=== PATIENT | male | born 2000 ===

== ENCOUNTER 2020-02-05 08:24 | Outpatient (REF) | payer MEDICAID, SELFPAY | END 2020-02-05 08:25 | disposition home or self-care (01) | LOC: HO.LAB 08:24 | PROVIDERS: PCP Pediatrics; Visit Provider Internal Medicine | DX: Z20.828 Contact with and (suspected) exposure to other viral communicable diseases (principal) | CPT/HCPCS: C9803; U0003 ==

== ENCOUNTER 2020-05-31 14:56 | Emergency (ER) | payer MEDICAID, SELFPAY ==
--- NOTE | 2020-05-31 15:01 | ED.EXTPRO ---
HPI - Extremity Problem General Chief complaint: Extremity Injury, Upper Stated complaint: pulled muscle l arm Time Seen by Provider: 05/31/20 15:01 Source: patient Mode of arrival: ambulatory Limitations: no limitations History of Present Illness HPI Narrative: Otherwise healthy 20-year-old male states he recently started going to the gym 1 week ago or so and over the past couple days he has been doing upper arm shows sizes and felt sore in the triceps area of the left arm after doing workouts and couple days has had soreness in the biceps area and today noted to have slight swelling on the distal aspect. He states he is able to fully move and flex at the arm however when he does any resistance against the bicep more the minimum it hurts. MD Complaint: extremity pain Pain Consistency: intermittent Location: left Quality: aching Radiation: none Relieving factors: cold therapy and immobilization Exacerbating factors: range of motion Associated symptoms: denies other symptoms Related Data Previous Rx's Medication Instructions Recorded ibuprofen 800 mg PO Q8H PRN #30 tab 05/31/20 Allergies Allergy/AdvReac Type Severity Reaction Status Date / Time No Known Allergies Allergy Verified 05/31/20 15:21 [No Known Allergies*] Review of Systems Review of Systems: Constitutional: No Weight loss, No Fever, No Chills, No Night Sweats, No Fatigue, No Malaise ENT/Mouth: No Hearing loss, No Ear Pain, No Nasal Congestion, No Sinus Pain, No Hoarseness, No sore throat, No Rhinorrhea, No Swallowing Difficulty Eyes: No Eye Pain, No Swelling, No Redness, No Foreign Body, No Discharge, No Vision Changes Cardiovascular: No Chest Pain, No SOB, No Dyspnea on Exertion, No Orthopnea, No Edema, No Palpitations Respiratory: No Cough, No Sputum, No Wheezing, No Smoke Exposure, No Dyspnea Gastrointestinal: Negative Genitourinary: Negative Musculoskeletal: No joint pain, No Myalgias, No Joint Swelling, as noted per HPI Skin: No Skin Lesions, No rash Neuro: No Weakness, No Numbness, No Paresthesias, No Loss of Consciousness, No Dizziness, No Headache Psych: No Social Issues Heme/Lymph: No Bruising, No Bleeding,No Lymphadenopathy Endocrine: No Polyuria, No Polydipsia, No Temperature Intolerance Yes all other systems are reviewed and are negative [facility] Past Medical History Medical History (Updated 05/31/20 @ 15:49 by Sergio Rodriguez NP) No known health problems Social History Social History Advance Directives: No Advance Directives Information Provided: Yes Physical Exam Vital Signs: Vital Signs: Last Vital Signs Temp 98.2 F 05/31/20 15:19 Pulse 87 05/31/20 15:19 Resp 18 05/31/20 15:19 BP 132/63 05/31/20 15:19 Pulse Ox 100 05/31/20 15:19 Body Mass Index 40.7 Reviewed Const: General: cooperative and healthy appearing; No acute distress or intoxicated appearing Nutritional Appearance: average body habitus Orientation/consciousness: patient oriented x3 HENMT: Head: Yes normal to inspection Ears: hearing grossly normal bilaterally Eyes: General: appearance normal, both eyes and all related structures Visual Diaz: normal visual diaz by confrontation Neck: Neck: Yes normal visual inspection, No positive Brudzinski's sign, No positive Kernig's sign and No tender Thyroid: Thyroid normal Chest: Chest palpation & inspection: normal inspection of the chest Resp: Effort & Inspection: normal respiratory effort Auscultation: clear to auscultation bilaterally Cardio: Jugular venous distension: no JVD Rhythm: regular rhythm Heart sounds: S1 normal heart sound present and S2 normal heart sound present : General: Yes no CVA tenderness Back/Spine/Pelvis: Back: no CVA tenderness Skin: General skin exam: no rashes or lesions noted Neuro: General: patient oriented x3 Extrem: Other: With pushing against downward force using the triceps he has in the lower biceps region. No over bulging or erythema or ecchymosis. Neurovascular intact. General: Yes normal to inspection Right upper extremity: normal to inspection and full ROM (Able to have full painless range of motion and fully flex ) Left upper extremity: normal to inspection Course Course Course Narrative: Question triceps partial tear versus strain case discussed with Orthopedics recommendation for NSAIDs and cool compresses and follow up in office. Discharge Plan Discharge Clinical Impression: Strain of left triceps muscle Qualifiers: Encounter type: initial encounter Qualified Code(s): S46.312A - Strain of muscle, fascia and tendon of triceps, left arm, initial encounter Patient Disposition: Home, Self-Care Instructions: Muscle Strain (ED) Additional Instructions: You have stranger triceps muscle There is a question whether you have partial tear For this you need to limit her activity Gentle stretching Cold compresses Ibuprofen as prescribed Follow up with Orthopedics in the next 1 weeks Return if any concerns or worsening symptoms Thank you Prescriptions: New ibuprofen 800 mg tablet 800 mg PO Q8H PRN (Reason: pain) Qty: 30 RF: 0 Referrals: Renetta Israel MD [Physician] - 1 week Stand Alone Forms: Work/School Release Interventions: ED Discharge Assessment Last Done: 05/31/20 15:55 Discharge Date/Time: 05/31/20 15:55
[2020-05-31 15:19] VITALS: BP 132/63; PULSE 87; RESP 18; TEMP 36.8; O2SAT 100; BMI 40.7
== END 2020-05-31 15:55 | disposition home or self-care (01) ==
PROVIDERS: Emergency Provider Emergency Medicine; PCP Pediatrics
DX: S46.312A Strain of muscle, fascia and tendon of triceps, left arm, initial encounter (principal); M79.622 Pain in left upper arm; X50.0XXA Overexertion from strenuous movement or load, initial encounter; X50.3XXA Overexertion from repetitive movements, initial encounter; Y93.B9 Activity, other involving muscle strengthening exercises; Y92.9 Unspecified place or not applicable; Y99.9 Unspecified external cause status
CPT/HCPCS: 99283

== ENCOUNTER → 2020-06-11 11:07 | Outpatient (BNVA) | payer MEDICAID, SELFPAY | PROVIDERS: Visit Provider Physician Assistant | DX: S46.312A Strain of muscle, fascia and tendon of triceps, left arm, initial encounter (principal) | CPT/HCPCS: 99202 ==

== ENCOUNTER 2020-12-31 13:56 | Outpatient (REF) | payer MEDICAID, SELFPAY | END 2020-12-31 13:57 | disposition home or self-care (01) | LOC: HO.LAB 13:56 | PROVIDERS: PCP Pediatrics; Visit Provider Internal Medicine | DX: Z20.822 Contact with and (suspected) exposure to COVID-19 (principal) | CPT/HCPCS: C9803; U0003; U0005 ==

== ENCOUNTER 2022-03-17 12:07 | Emergency (ER) | payer MEDICAID, SELFPAY ==
--- NOTE | ~2022-03-17 | US_ITS ---
EXAMINATION: US ABDOMEN LIMITED CLINICAL INFORMATION: Right upper quadrant pain. Assess for biliary disease.. COMPARISON: CT abdomen and pelvis with contrast 11/14/2016 TECHNIQUE: Real-time imaging of the right upper quadrant abdominal viscera. FINDINGS: PANCREAS: Small portions of the pancreatic body visualized appear normal in size and no pancreatic ductal distention or retroperitoneal effusion. Other portions are obscured by bowel gas and not completely imaged. LIVER: Liver is upper limits of normal and smooth in contour. Echogenicity is within limits of normal. No focal hepatic parenchymal lesion. Portal flow towards the liver. No intrahepatic biliary ductal dilatation. GALLBLADDER: There are mobile stones in the dependent gallbladder. No gallbladder wall thickening or pericholecystic fluid. COMMON BILE DUCT: Normal in caliber measuring 0.5 cm in diameter. RIGHT KIDNEY: Normal. No hydronephrosis. No renal calculi or focal parenchymal lesions. The kidney measures 9.8 cm in maximum dimension. FREE FLUID: None. US/US abdomen limited IMPRESSION: -Cholelithiasis. No gallbladder wall thickening or biliary ductal dilatation. -No right hydronephrosis.
[2022-03-17 12:19] VITALS: BP 118/84; PULSE 68; RESP 18; TEMP 36.7; O2SAT 100; BMI 39.1
--- NOTE | 2022-03-17 12:46 | ED_ITS ---
HPI - Abdominal Pain General Chief Complaint: Abdominal Pain <Johnson Dobbs MD - Last Filed: 03/17/22 12:48> Stated Complaint: Upper Stomach Pain <Johnson Dobbs MD - Last Filed: 03/17/22 12:48> Time Seen by Provider: 03/17/22 12:52 <Johnson Dobbs MD - Last Filed: 03/17/22 12:48> Source: patient <MIKAELA Morales - Last Filed: 03/17/22 16:07> Mode of arrival: ambulatory <MIKAELA Morales - Last Filed: 03/17/22 16:07> Limitations: no limitations <MIKAELA Morales Last Filed: 03/17/22 16:07> History of Present Illness HPI narrative: 21-year-old male presents to the ER for evaluation epigastric pain that started at 05:00 today after he woke up. He reports the pain is sharp and burning in nature and radiates around both sides of his rib cage into his back. He has had several episodes of pain like this in the past, been seen in the ER and told he had ?swelling of his small intestine. ? he states intermittent flare-ups every few months for the last few years. He denies any associated nausea, vomiting or diarrhea. He had last normal bowel movement this morning. He denies any fever or chills. He states the pain is primarily in his epigastric area and is constant. The radiation is intermittent and more to the right side than the left side. <MIKAELA Morales - Last Filed: 03/17/22 16:07> MD elicited complaint: abdominal pain <MIKAELA Morales - Last Filed: 03/17/22 16:07> Onset (ago): hour(s) <MIKAELA Morales Last Filed: 03/17/22 16:07> Pain Consistency: constant <MIKAELA Morales Last Filed: 03/17/22 16:07> Location: epigastric <MIKAELA Morales Last Filed: 03/17/22 16:07> Severity: moderate <MIKAELA Morales Last Filed: 03/17/22 16:07> Pain scale (0-10): 7 <MIKAELA Morales - Last Filed: 03/17/22 16:07> Quality: aching and burning <MIKAELA Morales - Last Filed: 03/17/22 16:07> Radiation: L flank, R flank and back <MIKAELA Morales - Last Filed: 03/17/22 16:07> Migration to: no migration <MIKAELA Morales - Last Filed: 03/17/22 16:07> Exacerbating factors: nothing <MIKAELA Morales - Last Filed: 03/17/22 16:07> Relieving factors: nothing <MIKAELA Morales - Last Filed: 03/17/22 16:07> Context: history of similar episodes <MIKAELA Morales - Last Filed: 03/17/22 16:07> Related Data Home Medications: Previous Rx's Medication Instructions Recorded ibuprofen 800 mg tablet 800 mg PO Q8H PRN pain #30 tabs 05/31/20 pantoprazole 40 mg tablet,delayed 40 mg PO DAILY #30 tabs 03/17/22 release (Protonix) <Johnson Dobbs MD - Last Filed: 03/17/22 12:48> Allergies/Adverse Reactions: Allergies Allergy/AdvReac Type Severity Reaction Status Date / Time No Known Allergies Allergy Verified 06/11/20 11:13 [No Known Allergies*] <Johnson Dobbs MD - Last Filed: 03/17/22 12:48> Review of Systems Review of Systems Constitutional: No Fever, No Chills Cardiovascular: No Chest Pain, No SOB Respiratory: No Cough, No Sputum, No Wheezing, No dyspnea Gastrointestinal: No Nausea, No Vomiting, No Diarrhea, + abdominal Pain, No Hematochezia, No Melena Genitourinary: No Dysuria, No Urinary Frequency, No Hematuria Musculoskeletal: No joint pain, No Myalgias Skin: No Skin Lesions, No rash Neuro: No Weakness, No Numbness, No Dizziness, No Headache Psych: No Anxiety/Panic, No Depression Heme/Lymph: No Bruising, No Lymphadenopathy <MIKAELA Morales Last Filed: 03/17/22 16:07> PMFSH Past Medical History Medical History: Medical History No known health problems <Johnson Dobbs MD - Last Filed: 03/17/22 12:48> Family History Family History: Family History (Updated 06/11/20 @ 11:13 by SANDRA Fernandes) Mother No problems noted. Father No problems noted. 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 Oriented X3. No acute distress. Eyes: Pupils equal, round and reactive to light. ENT: Pharynx normal. Neck: Normal inspection. Neck supple. CVS: Normal heart rate and rhythm. Pulses normal. Respiratory: No respiratory distress. Breath sounds normal. Abdomen: Soft and nontender. +BS x4 Skin: Skin warm and dry. Normal skin color. Normal skin turgor. No rashes. Extremities: No lower extremity edema. Neuro: Oriented X 3. No motor deficit. No sensory deficit. <MIKAELA Morales - Last Filed: 03/17/22 16:07> Course Course Course Narrative: RME: 21-year-old male who presents emergency department for evaluation of epigastric and right upper quadrant radiating to his back. Patient states that similar pain in the past. Patient's exam revealed epigastric and right upper quadrant tenderness. I ordered a workup to include CBC, CMP, lipase, PT/INR, PTT, urinalysis and right upper quadrant ultrasound. <Johnson Dobbs MD - [facility] Filed: 03/17/22 12:48> Reevaluation(s) Reevaluation #1: 21 yo male with epigastric and RUQ pain, intermittent episodes over the last several years. Negative murphys sign on exam. Labs are unremarkable. Lipase normal. Pending U/S. GI cocktail ordered. <MIKAELA Morales - Last Filed: 03/17/22 16:07> Reevaluation #2: US with gallstones, no cholecystitis. Stable for d/c home with PPI for ?gastritis as well as dietary modifications and surgical evaluation. patient agrees with plan. <MIKAELA Morales - Last Filed: 03/17/22 16:07> Medical Decision Making Lab Data Result Diagrams: : 03/17/22 12:47 03/17/22 12:47 <Johnson Dobbs MD - Last Filed: 03/17/22 12:48> Labs: Lab Results 03/17/22 03/17/22 03/17/22 Range/Units 12:32 12:47 12:47 WBC 4.9 (4.8-10.8) X10*3/uL RBC 4.60 (4.60-5.80) X10*6/uL Hgb 13.1 L (14.0-18.0) g/dl Hct 40.2 L (42.0-52.0) % MCV 87.4 (80.0-98.0) fL MCH 28.5 (27.0-33.0) pg MCHC 32.6 (31.0-36.0) g/dl RDW 12.8 (11.0-16.0) % Plt Count 290 (160-400) X10*3/uL MPV 8.9 L (9.4-12.4) fL Immature Gran % (Auto) 0.0 (0.0-0.4) % Neut % (Auto) 52.0 (45-73) % Lymph % (Auto) 35.8 (20-40) % [place] % (Auto) 8.1 (2-11) % Eos % (Auto) 3.5 (0-4) % Baso % (Auto) 0.6 (0-2) % Lymph # (Auto) 1.8 (1.2-4.9) X10*3/uL [place] # (Auto) 0.4 (0.1-1.2) X10*3/uL Eos # (Auto) 0.2 (0.0-0.4) X10*3/uL Baso # (Auto) 0.0 (0.0-0.2) X10*3/uL Abs Immat Gran (auto) 0.00 (0.00-0.03) X10*3/uL Absolute Neuts (auto) 2.6 (2.0-8.3) x10*3/uL Absolute Nucleated RBC 0.000 (0.0-0.012) X10*3/uL Nucleated RBC % (auto) 0.0 (0.0-0.2) /100WBC Sodium 138 (135-145) mmol/L Potassium 4.2 (3.3-5.1) mmol/L Chloride 106 (96-108) mmol/L Carbon Dioxide 26 (22-29) mmol/L Anion Gap 10 L (12-20) BUN 12 (9-16) mg/dL Creatinine 0.69 (0.5-1.4) mg/dL Estim Creat Clear Calc 201.9 Estimated GFR > 60 Random Glucose 93 (60-115) mg/dL Calcium 8.9 (8.4-10.2) mg/dL Total Bilirubin 0.5 (0.0-1.0) mg/dL Direct Bilirubin 0.2 (0.0-0.5) mg/dL AST 26 (5-37) U/L ALT 26 (0-40) U/L Alkaline Phosphatase 98 (39-117) U/L Total Protein 7.7 (6.5-8.0) g/dL Albumin 4.2 (3.5-5.0) g/dL Lipase 11 (8-78) U/L Urine Color Yellow Urine Appearance Clear Urine pH 7.0 (5.0-9.0) Ur Specific Superior 1.020 (1.005-1.025) Urine Protein Negative (Neg-Trace) mg/dL Urine Glucose (UA) Negative (Negative) mg/dL Urine Ketones Negative (Negative) mg/dL Urine Blood Negative (Negative) Urine Nitrite Negative (Negative) Ur Leukocyte Esterase Negative (Negative) <Johnson Dobbs MD - Last Filed: 03/17/22 12:48> Lab Results 03/17/22 03/17/22 03/17/22 Range/Units 12:32 12:47 12:47 WBC 4.9 (4.8-10.8) X10*3/uL RBC 4.60 (4.60-5.80) X10*6/uL Hgb 13.1 L (14.0-18.0) g/dl Hct 40.2 L (42.0-52.0) % MCV 87.4 (80.0-98.0) fL MCH 28.5 (27.0-33.0) pg MCHC 32.6 (31.0-36.0) g/dl RDW 12.8 (11.0-16.0) % Plt Count 290 (160-400) X10*3/uL MPV 8.9 L (9.4-12.4) fL Immature Gran % (Auto) 0.0 (0.0-0.4) % Neut % (Auto) 52.0 (45-73) % Lymph % (Auto) 35.8 (20-40) % Corson % (Auto) 8.1 (2-11) % Eos % (Auto) 3.5 (0-4) % Baso % (Auto) 0.6 (0-2) % Lymph # (Auto) 1.8 (1.2-4.9) X10*3/uL Corson # (Auto) 0.4 (0.1-1.2) X10*3/uL Eos # (Auto) 0.2 (0.0-0.4) X10*3/uL Baso # (Auto) 0.0 (0.0-0.2) X10*3/uL Abs Immat Gran (auto) 0.00 (0.00-0.03) X10*3/uL Absolute Neuts (auto) 2.6 (2.0-8.3) x10*3/uL Absolute Nucleated RBC 0.000 (0.0-0.012) X10*3/uL Nucleated RBC % (auto) 0.0 (0.0-0.2) /100WBC Sodium 138 (135-145) mmol/L Potassium 4.2 (3.3-5.1) mmol/L Chloride 106 (96-108) mmol/L Carbon Dioxide 26 (22-29) mmol/L Anion Gap 10 L (12-20) BUN 12 (9-16) mg/dL Creatinine 0.69 (0.5-1.4) mg/dL Estim Creat Clear Calc 201.9 Estimated GFR > 60 Random Glucose 93 (60-115) mg/dL Calcium 8.9 (8.4-10.2) mg/dL Total Bilirubin 0.5 (0.0-1.0) mg/dL Direct Bilirubin 0.2 (0.0-0.5) mg/dL AST 26 (5-37) U/L ALT 26 (0-40) U/L Alkaline Phosphatase 98 (39-117) U/L Total Protein 7.7 (6.5-8.0) g/dL Albumin 4.2 (3.5-5.0) g/dL Lipase 11 (8-78) U/L Urine Color Yellow Urine Appearance Clear Urine pH 7.0 (5.0-9.0) Ur Specific Superior 1.020 (1.005-1.025) Urine Protein Negative (Neg-Trace) mg/dL Urine Glucose (UA) Negative (Negative) mg/dL Urine Ketones Negative (Negative) mg/dL Urine Blood Negative (Negative) Urine Nitrite Negative (Negative) Ur Leukocyte Esterase Negative (Negative) <MIKAELA Morales - Last Filed: 03/17/22 16:07> Medications Administered Discontinued Medications Generic Name Dose Route Start Last Admin Trade Name Freq PRN Reason Stop Dose Admin Al Hydroxide/Mg Hydroxide 30 ml 03/17/22 13:25 03/17/22 13:40 Magnesium Hydrox/Alum Hydrox 30 Ml Oral.Susp PO 03/17/22 13:26 30 ml ONCE ONE Administration Belladonna Alkaloids/Phenobarbital 10 ml 03/17/22 13:30 03/17/22 13:41 Phenobarb/Hyoscy/Atropine/Scop 10 Ml Elixir PO 03/17/22 13:31 10 ml ONCE ONE Administration Lidocaine HCl 15 ml 03/17/22 13:30 03/17/22 13:40 Lidocaine Hcl Viscous 2 % 15 Ml Solution MUCOUS MEM 03/17/22 13:31 15 ml ONCE ONE Administration Omeprazole 40 mg 03/17/22 13:30 03/17/22 13:39 Omeprazole 40 Mg Capsule. PO 03/17/22 13:31 40 mg ONCE ONE Administration <Johnson oDbbs MD - Last Filed: 03/17/22 12:48> Medications Administered Discontinued Medications Generic Name Dose Route Start Last Admin Trade Name Shu PRN Reason Stop Dose Admin Al Hydroxide/Mg Hydroxide 30 ml 03/17/22 13:25 03/17/22 13:40 Magnesium Hydrox/Alum Hydrox 30 Ml Oral.Susp PO 03/17/22 13:26 30 ml ONCE ONE Administration Belladonna Alkaloids/Phenobarbital 10 ml 03/17/22 13:30 03/17/22 13:41 Phenobarb/Hyoscy/Atropine/Scop 10 Ml Elixir PO 03/17/22 13:31 10 ml ONCE ONE Administration Lidocaine HCl 15 ml 03/17/22 13:30 03/17/22 13:40 Lidocaine Hcl Viscous 2 % 15 Ml Solution MUCOUS MEM 03/17/22 13:31 15 ml ONCE ONE Administration Omeprazole 40 mg 03/17/22 13:30 03/17/22 13:39 Omeprazole 40 Mg Capsule. PO 03/17/22 13:31 40 mg ONCE ONE Administration <MIKAELA Morales - Last Filed: 03/17/22 16:07> Discharge Plan Discharge Clinical Impression: Gallstones, Biliary colic <Johnson Dobbs MD - Last Filed: 03/17/22 12:48> Patient Disposition: Home, Self-Care <Johnson Dobbs MD - Last Filed: 03/17/22 12:48> Instructions: Biliary Colic (ED), Gallstones (ED) <Johnson Dobbs MD - Last Filed: 03/17/22 12:48> Additional Instructions: Your lab workup today was unremarkable. Your pain is most likely due to gastritis which is and irritation and infla mmation of your stomach lining. You also may have pain due to gallstones that intermittently flare up and case pain. Start taking the prescribed medication to help reduce acid in your stomach. Stick to a bland diet. Avoid foods high in acid, greasy foods, and dairy. avoid alcohol and NSAID medications like Aleve, Motrin, Advil or ibuprofen. Follow up with your doctor as needed. Follow up with GI doctor if you symptoms persist despite dietary modifications and medication. If you develop new or worsening symptoms call 911 or come back to the ER for further evaluation. <Johnson Dobbs MD - Last Filed: 03/17/22 12:48> Prescriptions: New pantoprazole [Protonix] 40 mg tablet,delayed release (DR/EC) 40 mg PO DAILY Qty: 30 0RF No Action ibuprofen 800 mg tablet 800 mg PO Q8H PRN (Reason: pain) Qty: 30 0RF <Johnson Dobbs MD - Last Filed: 03/17/22 12:48>
[2022-03-17 12:54] LABS: MANUAL DIFF FLAG NO
[2022-03-17 12:55] LABS: Appearance Urine Clear; Color Urine Yellow; Glucose Urine UA Negative (Negative); Leukocyte Esterase Urine Negative (Negative); Nitrite Urine Negative (Negative); Urine Blood Negative (Negative); Urine Ketones Negative (Negative); Urine Protein Negative (Neg-Trace)
[2022-03-17 12:55] LABS: Basophils Percent Auto 0.6 % (0-2); Eosinophils Absolute Auto 0.2 X10*3/uL (0.0-0.4); Eosinophils Percent Auto 3.5 % (0-4); Hematocrit 40.2 % (42.0-52.0); Hemoglobin 13.1 g/dl (14.0-18.0); Lymphocytes Absolute Auto 1.8 X10*3/uL (1.2-4.9); Lymphocytes Percent Auto 35.8 % (20-40); Mean Corpuscular HGB Conc 32.6 g/dl (31.0-36.0); Mean Corpuscular Hemoglobin 28.5 pg (27.0-33.0); Mean Corpuscular Volume 87.4 fL (80.0-98.0); Mean Platelet Volume 8.9 fL (9.4-12.4); Monocytes Absolute Auto 0.4 X10*3/uL (0.1-1.2); Monocytes Percent Auto 8.1 % (2-11); Neutrophils Absolute Auto 2.6 x10*3/uL (2.0-8.3); Platelet Count 290 X10*3/uL (160-400); Red Cell Distribution Width 12.8 % (11.0-16.0); White Blood Count 4.9 X10*3/uL (4.8-10.8)
[2022-03-17 13:14] LABS: Alanine Aminotransferase 26 U/L (0-40); Albumin Level 4.2 g/dL (3.5-5.0); Alkaline Phosphatase 98 U/L (39-117); Anion Gap 10 (12-20); Aspartate Amino Transferase 26 U/L (5-37); Bilirubin Direct 0.2 mg/dL (0.0-0.5); Bilirubin Total 0.5 mg/dL (0.0-1.0); Blood Urea Nitrogen 12 mg/dL (9-16); Calcium 8.9 mg/dL (8.4-10.2); Carbon Dioxide 26 mmol/L (22-29); Chloride 106 mmol/L (96-108); Creatinine Clr Calc Pharmacy 201.9; Estimated Glomerular Filt Rate > 60; Glucose Random 93 mg/dL (60-115); Lipase 11 U/L (8-78); Potassium 4.2 mmol/L (3.3-5.1); Sodium 138 mmol/L (135-145); Total Protein 7.7 g/dL (6.5-8.0)
[2022-03-17] MEDS: Omeprazole 40 MG CAPSULE.DR PO (13:39)
[2022-03-17] MEDS: Lidocaine HCl Viscous 2 % 15 ML SOLUTION MUCOUS MEM (13:40)
[2022-03-17] MEDS: Magnesium Hydrox/Alum Hydrox 30 ML ORAL.SUSP PO (13:40)
[2022-03-17] MEDS: PHENobarb/Hyoscy/Atropine/Scop 10 ML ELIXIR PO (13:41)
== END 2022-03-17 16:12 | disposition home or self-care (01) ==
PROVIDERS: Emergency Provider Emergency Medicine Emergency Medical Services
DX: K80.20 Calculus of gallbladder without cholecystitis without obstruction (principal); R10.13 Epigastric pain
CPT/HCPCS: 36415; 76705; 80053; 81003; 82248; 83690; 85025; 99283; 99284

== ENCOUNTER 2023-07-22 12:38 | Outpatient (REF) | payer MEDICAID, SELFPAY ==
[2023-07-22 16:41] LABS: Cholesterol 228 mg/dL (<200); HDL Cholesterol 35 mg/dL (>40); LDL Cholesterol Calculated 176 mg/dL (<100); Triglycerides 88 mg/dL (<150)
[2023-07-23 04:39] LABS: ~HepC Num1 0.22 S/CO (0.00-0.79); ~Hepatitis C Antibody Nonreactive (Nonreactive)
== END 2023-07-22 12:39 | disposition home or self-care (01) ==
LOC: HO.HHCL 12:38
PROVIDERS: Visit Provider Nurse Practitioner Family
DX: Z00.00 Encounter for general adult medical examination without abnormal findings (principal); Z86.39 Personal history of other endocrine, nutritional and metabolic disease
CPT/HCPCS: 36415; 80061; 86803

== ENCOUNTER 2023-11-18 11:11 | Outpatient (AMB) | payer MEDICAID, SELFPAY ==
--- NOTE | 2023-11-18 12:03 | A.OFFVIS_ITS ---
Intake Visit Reasons: vasectomy consult Intake Note: New patient is present for Vasectomy Consult Patient currently has twins on the way Kiln Feeder Required: No Allergies No Known Allergies [No Known Allergies*] Allergy (Verified 06/11/20 11:13) HPI Comments Details: Chris is a very pleasant male. He is a patient of Dr. Josue . He is seen for the following urologic condition - anxiety about health - Vasectomy evaluation Vasectomy evaluation The patient presents for vasectomy consultation. He is currently in a stable partnership He has fathered - 1 child, with a single partner. The youngest child is - greater than 1 year. His partner is aware and permissive for a vasectomy Current form of control is barrier. The vasectomy may be complicated due to a history of no complicating issues, inguinal hernia repair, orchidopexy, history of orchitis, orchiectomy. Patient education has been provided via AUA video, via printed information, risks of failure, recovery time, bruising and potential pain syndrome have been stressed Discussion today focused on the presence of vasectomy and the risks, benefits and alternatives that are available. Vasectomy as intended as a permanent form of control. Printed information and literature was provided to the patient. Overall there is a one in 2500 failure rate. This can occur at any time after vasectomy. Risks were discussed highlighting hematoma, spermatocele, epididymal congestion, development of sperm antibodies, and development of chronic pain estimated between 1-5%. The procedure was reviewed in detail. Anatomical diagrams of the male genitalia were used to explain the location of the vas deferens. The vas deferens will be transected, the proximal end will be cauterized, a metal clip would be applied to separate the 2 vas deferens ends. It was explained the procedure will be done in the office and takes approximately 10-15 minutes. Less common problems that arise with vasectomy include hematoma, bleeding, allergic reaction to anesthetic, epididymal infection, epididymal congestion, scrotal discomfort, spermatic leak, spermatic granuloma and the possibility of antisperm antibodies. He understands these risks and wishes to proceed. Consent was signed at the office today. He also understands that it takes 12 weeks for sperm to fully clear the system. He will need to provide a semen sample at 12 weeks and if this is not clear a 2nd sample at 16 weeks. Medical clearance to stop using protection will only be provided if he satisfies published criteria for sperm clearance. . [facility] Medical History No known health problems Family History (Updated 06/11/20 @ 11:13 by SANDRA Fernandes) Mother No problems noted. Father No problems noted. 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 Review of Systems Const Denies chills and Denies fever(s) Card Reports no additional complaints and Denies syncope Resp Denies cough GI Denies abdominal pain and Denies heartburn Reports as per HPI and Denies change in libido Neuro Denies syncope Psych Denies change in libido Endo Denies change in libido Physical Exam Const General: cooperative, healthy appearing, comfortable and no acute distress Orientation/consciousness: patient oriented x3 HEENT Face and sinus: Yes normal facial exam Mouth: moist mucous membranes Neck Neck: Yes normal visual inspection, Yes full ROM and Yes trachea midline Chest Chest palpation & inspection: normal inspection of the chest Resp Effort & Inspection: normal respiratory effort, able to speak in complete sentences and no respiratory distress GI Inspection: Yes normal to inspection Back/Spine/Pelvis Cervical Spine: normal cervical lordosis Thoracic/Lumbar Spine: thoracic and lumbar spine normal to inspection Skin General skin exam: no rashes or lesions noted Neuro General: patient oriented x3, gait normal, tone normal and moves all extremities Extrem General: Yes normal to inspection and Yes capillary refill normal Assessment & Plan Assessment & Plan (1) Anxiety about health: Code(s): R45.89 - Other symptoms and signs involving emotional state Category: Medical Plan Plan vasectomy Patient Instructions: Imaging studies, laboratory and physical exam results were discussed and reviewed in detail. No major barriers to patient understanding were identified. An opportunity to ask questions regarding the treatment plan was provided. All questions were answered. The patient expressed understanding and agreement with the above treatment plan. The patient is aware they should contact our office by phone for worsening of their current condition or the appearance of new urologic symptoms. Compliance is encouraged with any medications and followup testing that is ordered. It is a privilege to participate in the urologic care of your patient. If you have any questions or concerns regarding treatment for the above conditions, or other urologic issues, please do not hesitate to contact me. The office telephone contact is [phone]. This note is constructed using voice recognition software. While every effort has been made to ensure accuracy security shift manager errors may have been included. Yours sincerely, Dr Edwar Gamboa MD, [facility] - Urology Providers of Expert, Compassionate Care for the Genitourinary System Coding Level of Care Code New Pt Level 4 (43224) Diagnoses Anxiety about health R45.89
== END 2023-11-18 12:33 | disposition home or self-care (01) ==
PROVIDERS: PCP Nurse Practitioner Family; Visit Provider Urology
DX: Z30.09 Encounter for other general counseling and advice on contraception (principal); R45.89 Other symptoms and signs involving emotional state
CPT/HCPCS: 99204

== ENCOUNTER → 2023-11-18 11:11 | Outpatient (BNVA) | payer MEDICAID, SELFPAY | PROVIDERS: PCP Nurse Practitioner Family; Visit Provider Urology | DX: F41.8 Other specified anxiety disorders (principal); Z30.09 Encounter for other general counseling and advice on contraception | CPT/HCPCS: 99202 ==

== ENCOUNTER 2024-02-29 14:52 | Outpatient (AMB) | payer MEDICAID, SELFPAY ==
--- NOTE | 2024-02-29 14:57 | MHC.OFFVIS ---
Intake Visit Reasons: vasectomy Intake Note: Patient is present for VASECTOMY Urology Medication:ACETAMINOPHEN CODEINE Antibiotic Allergy:NONE Blood Thinner:NONE Burn Crew Member Required: No Allergies No Known Allergies [No Known Allergies*] Allergy (Verified 02/29/24 18:43) HPI Comments Details: Chris is a very pleasant male. He is a patient of Dr. Josue . He is seen for the following urologic condition - anxiety about health - Vasectomy procedure Vasectomy procedure The patient presents for vasectomy procedure. He is currently in a stable partnership He has fathered - 1 child, with a single partner. The youngest child is - greater than 1 year. His partner is aware and permissive for a vasectomy Current form of control is barrier. COUNTS INCLUDE 234 BEDS AT THE [facility] Medical History No known health problems Family History (Updated 06/11/20 @ 11:13 by SANDRA Fernandes) Mother No problems noted. Father No problems noted. 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 Preoperative and postoperative instructions were provided to the patient. The patient has transportation to home identified at the completion of the procedure. Anti-anxiolytic prescription medication had been taken after consent verification and all questions answered. Tylenol with Codeine pain medication was also provided. The penis was elevated using a rubber band that was attached to the patient's shirt. Both vasa were palpated through the skin using a 3 finger technique and the penoscrotal junction was prepped with Betadine. After Betadine application the left vas was elevated using a 3 finger grasping technique. 1% lidocaine was used to create a subdermal bubble. Further anesthetic was then advanced using the 25-gauge needle along the vasa in a proximal fashion. Approximately 2 minutes were allowed to for local anesthetic uptake. Using the sharp spreading instrument the scrotal skin was spread longitudinally in line with the vasa until the subdermal layer had been divided. The vasa was then elevated from the scrotum using a ring clamp. Care was taken to elevate the superior portion of the vasa by rotating the ring clamp in a caudad direction. The battery powered cautery was used to divide the vasal sheath in a longitudinal direction on the exposed vasa and to strip the vasal sheath from the vasa. A 2nd narrower ring clamp was placed on the exposed vas and used to lift the vas from the vasal sheath. so it grasped the elevated vas. The cautery was used to divide vasal attachments and allow full exposure of a small loop of vasa. The sharp spreading instrument was then used to create a tunnel under the vasa and spread to allow the blood vessels of the vasa to retract from the vasa. A mosquito clamp was placed on the proximal portion of the vas. The battery-powered cautery was used to make a partial division in the proximal vas and then inserted in order to cauterize the proximal end of the vas. This was then cut and allowed to retract into the vasal sheath. The mosquito was then used to twist the vasa 180 degrees creating a fascial interposition. Using a 4-0 chromic suture the fascial interposition was sutured closed. The distal portion of the vas was then cut in order to obtain a segment of vasa. The vasa were allowed to retract back into the scrotum. A small snap was then used to approximate the skin edges and allow hemostasis without placement of a suture. A similar procedure was repeated on the right side. He tolerated the procedure well. Triple antibiotic was applied. A gauze was applied. An ice pack was applied to assist with minimizing swelling. Postoperative instructions were confirmed. He understands the need to continue to use control methods. A semen sample should be brought for inspection under the microscope in 10-12 weeks. CPT 74081 Informed consent given: Yes Informed consent signed: Yes Time out checklist: patient, procedure, site marked/identified, positioning of patient, supplies available, allergies confirmed and team agrees on procedure Preoperative sedation: Yes Anesthetic used: other Specimens: vas segments not sent to pathology 35519 - Vasectomy Assessment & Plan Assessment & Plan (1) Anxiety about health: Code(s): R45.89 - Other symptoms and signs involving emotional state Category: Medical Plan Twelve week follow-up Medications: New tramadol 50 mg PO Q8H PRN 7 tabs 0RF pain R45.89 - Other symptoms and signs involving emotional state, N43.3 - Hydrocele, unspecified Coding Level of Care Code Procedure Only Diagnoses Anxiety about health R45.89 CPT Codes Office Procedure - CPT: 99718 - Vasectomy ([id number])
== END 2024-02-29 15:54 | disposition home or self-care (01) ==
PROVIDERS: PCP Nurse Practitioner Family; Visit Provider Urology
DX: Z30.2 Encounter for sterilization (principal); R45.89 Other symptoms and signs involving emotional state
CPT/HCPCS: 55250

== ENCOUNTER → 2024-02-29 14:52 | Outpatient (BNVA) | payer MEDICAID, SELFPAY | PROVIDERS: PCP Nurse Practitioner Family; Visit Provider Urology | DX: N43.3 Hydrocele, unspecified (principal); R45.89 Other symptoms and signs involving emotional state; Z30.09 Encounter for other general counseling and advice on contraception; Z30.2 Encounter for sterilization | CPT/HCPCS: 55250 ==

== ENCOUNTER 2024-02-29 18:15 | Emergency (ER) | payer MEDICAID, SELFPAY ==
--- NOTE | ~2024-02-29 | US_ITS ---
EXAMINATION: US ABDOMEN LIMITED CLINICAL INFORMATION: Right upper quadrant pain. COMPARISON: 03/17/2022 TECHNIQUE: Real-time imaging of the right upper quadrant abdominal viscera. FINDINGS: GALLBLADDER: The gallbladder is physiologically distended. Multiple mobile gallstones are present. No evidence of gallbladder wall thickening or pericholecystic fluid. COMMON BILE DUCT: Normal in caliber measuring 0.4 cm in diameter. US/US abdomen limited IMPRESSION: Cholelithiasis. No sonographic findings of acute cholecystitis. Electronically signed by: Loraine Flores MD 02/29/2024 07:50 PM EST
[2024-02-29 18:23] VITALS: BP 124/76; PULSE 90; O2SAT 97
[2024-02-29 18:39] VITALS: BP 108/57; PULSE 82; RESP 20; TEMP 36.3; O2SAT 97; BMI 41.2
--- NOTE | 2024-02-29 18:41 | ED.GENADULT ---
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 Previous Rx's ?Medication ?Instructions ?Recorded ibuprofen 800 mg tablet 800 mg PO Q8H PRN pain #30 tabs 05/31/20 pantoprazole 40 mg tablet,delayed 40 mg PO DAILY #30 tabs 03/17/22 release (Protonix) acetaminophen 300 mg-codeine 30 mg 1 tab PO Q8H 3 days #9 tabs 01/26/24 tablet tramadol 50 mg tablet 50 mg PO Q8H PRN pain #7 tabs 02/29/24 Allergies Allergy/AdvReac Type Severity Reaction Status Date / Time No Known Allergies Allergy Verified 02/29/24 14:59 [No Known Allergies*] [facility] Past Medical History Medical History No known health problems Family History Family History (Updated 06/11/20 @ 11:13 by SANDRA Fernandes) Mother No problems noted. Father No problems noted. 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 23-year-old male few hours status post vasectomy presents with upper abdominal pain with sharp pains predominantly to the right-hand side, he reports he has had issues with his gallbladder in the past it is still in has not had it surgically removed. He had a Percocet that he was prescribed for his vasectomy he took it however pain still present. Reports he is very uncomfortable. Denies nausea, vomiting, fevers, chills, chest pain and shortness of breath. Appearance: Alert.? Oriented X3.? No acute cardiopulmonary distress distress.? Head: Normocephalic, atraumatic, no step-offs or deformities CVS: Pulses normal.? Respiratory: No respiratory distress.? Abdomen: Soft and Diffuse upper abdominal discomfort.? Skin: ? Normal skin color. Extremities: 5/5 strength to bilateral upper and lower extremities Back: No midline tenderness, no C-spine tenderness, full range of motion, No CVA tenderness bilaterally Neuro: Oriented X 3.? No motor deficit.? No sensory deficit. Discharge Plan Discharge Prescriptions: No Action ibuprofen 800 mg tablet 800 mg PO Q8H PRN (Reason: pain) Qty: 30 0RF pantoprazole [Protonix] 40 mg tablet,delayed release (DR/EC) 40 mg PO DAILY Qty: 30 0RF acetaminophen-codeine 300-30 mg tablet 1 tab PO Q8H 3 Days Qty: 9 0RF Rx Instructions: Taken each night after vasectomy to help sleep if needed tramadol 50 mg tablet 50 mg PO Q8H PRN (Reason: pain) Qty: 7 0RF Print Language: Belgian
--- NOTE | 2024-02-29 19:07 | MHC.EDTECH ---
This tech called pt @ 1905,to have labs drawn.pt not in waiting room,per provider pt is in ultrasound,will re-attempt
--- NOTE | 2024-02-29 19:36 | MHC.EDTECH ---
Patient brought into triage area,labs,and urine obtained and sent to lab
[2024-02-29 19:40] LABS: MANUAL DIFF FLAG NO
[2024-02-29 19:42] LABS: Appearance Urine Clear; Color Urine Yellow; Glucose Urine UA Negative (Negative); Leukocyte Esterase Urine Negative (Negative); Nitrite Urine Negative (Negative); PH 5.5 (5.0-9.0); Specific Gravity - Urine >= 1.030 (1.005-1.025); Urine Blood Negative (Negative); Urine Ketones Trace mg/dL (Negative); Urine Protein Trace mg/dL (Neg-Trace)
[2024-02-29 19:54] LABS: Alanine Aminotransferase 28 U/L (0-40); Albumin Level 4.1 g/dL (3.5-5.0); Alkaline Phosphatase 95 U/L (39-117); Anion Gap 14 (12-20); Aspartate Amino Transferase 50 U/L (5-37); Bilirubin Total 0.3 mg/dL (0.0-1.0); Blood Urea Nitrogen 16 mg/dL (9-16); Calcium 9.4 mg/dL (8.4-10.2); Carbon Dioxide 22 mmol/L (22-29); Chloride 106 mmol/L (96-108); Creatinine Clr Calc Pharmacy 182.9; Estimated Glomerular Filt Rate > 60; Glucose Random 110 mg/dL (60-115); Lipase 263 U/L (8-78); Magnesium 2.1 mg/dL (1.6-2.6); Potassium 3.8 mmol/L (3.3-5.1); Sodium 138 mmol/L (135-145); Total Protein 8.1 g/dL (6.5-8.0)
[2024-02-29 20:02] LABS: Basophils Absolute Auto 0.1 X10*3/uL (0.0-0.2); Basophils Percent Auto 0.7 % (0-2); Eosinophils Absolute Auto 0.1 X10*3/uL (0.0-0.4); Eosinophils Percent Auto 0.9 % (0-4); Hematocrit 39.1 % (42.0-52.0); Hemoglobin 13.1 g/dl (14.0-18.0); Imm Gran Abs Auto 0.12 X10*3/uL (0.00-0.03); Imm Gran Pct Auto 0.9 % (0.0-0.4); Lymphocytes Absolute Auto 1.8 X10*3/uL (1.2-4.9); Lymphocytes Percent Auto 12.9 % (20-40); Mean Corpuscular HGB Conc 33.5 g/dl (31.0-36.0); Mean Corpuscular Hemoglobin 28.5 pg (27.0-33.0); Mean Platelet Volume 8.7 fL (9.4-12.4); Monocytes Absolute Auto 0.9 X10*3/uL (0.1-1.2); Monocytes Percent Auto 6.5 % (2-11); Neutrophils Absolute Auto 10.9 x10*3/uL (2.0-8.3); Neutrophils Percent Auto 78.1 % (45-73); Platelet Count 387 X10*3/uL (160-400); White Blood Count 13.9 X10*3/uL (4.8-10.8)
== END 2024-02-29 21:35 | disposition left against medical advice (07) ==
PROVIDERS: Physician Assistant; Emergency Provider Emergency Medicine Emergency Medical Services
DX: K80.20 Calculus of gallbladder without cholecystitis without obstruction (principal); R10.10 Upper abdominal pain, unspecified
CPT/HCPCS: 36415; 76705; 80053; 81003; 83690; 83735; 85025; 99281; 99282

== ENCOUNTER 2024-08-17 14:56 | Outpatient (AMB) | payer OTHER, SELFPAY ==
--- OUTSIDE RECORDS SUMMARY | 2024-08-17 14:58 | XMS_ITS | Data Portability ---
Author Organization [facility], [address] Address [address] [place] [address] Assessment No assessment recorded. Plan of Treatment Reminders Order Date Submit Date Provider Last Modified By Organization Details Last Modified Time Details Appointments None record ed. Lab None record ed. Referral None record ed. Procedures None record ed. Surgeries None record ed. Imaging None record ed. Medication Orders None record ed. Patient TargetsNo targets recorded. Patient InstructionsNo instructions recorded. Reason for Referral None Reported. Procedures Surgical History Date Name Laterality Status Provider Name and Address Organization Details Recorded Time OC-UDS Rapid eCup Template completed [facility] 04/07/2024 18:28:37 Imaging Results None recorded. Procedure Notes None recorded. Medical Equipment None Reported. Medications Name Sig Start Date Stop Date Status Note LastModified by Organization Details LastModified Time amoxicillin 500 mg capsule TOME BRANDON C PSULA MARIA DE JESUS VECES AL D A active Not Available Not Available No t Available acetaminophe n 300 mg-codeine 30 mg tablet PLEASE SEE ATTACHED FOR DETAILED DIRECTIONS active Not Available Not Available N ot Available tramadol 50 mg tablet TAKE 1 TABLET ORALLY EVERY 8 HOURS NEEDED FOR PAIN active Not Available Not Available No t Available diazepam 2 mg tablet PLEASE SEE ATTACHED FOR DETAILED DIRECTIONS active Not Available Not Available N ot Available fluticasone propionate 50 mcg/actuatio n nasal spray,suspen luzma INSTILL 1 SPRAY INTO EACH NOSTRIL TWICE DAILY FOR ALLERGY SYMPTOMS. active Not Available Not Available No t Available Vitals None Recorded Social History None recorded. Functional Status None recorded. Mental Status None recorded. Family History Nothing Reported. Medical History No medical history recorded. Past Encounters Encounter ID Performer Location Encounter Start Date Encounter Closed Date Diagnosis/Indication Diagnosis SNOMED-CT Code Diagnosis ICD10 Code Diagnosis Note [id number] [facility] [address] [place] [address] 06/03/2021 17:30:45 06/03/2021 19:05:58 [id number] Ottoniel [place] [address] [address] 04/07/2024 18:02:17 04/07/2024 18:31:49 History and physical examination, occupation [id number] Z02.1 Health Concerns Section Related Observation LastModified by Organization Detai ls LastModified Time None Recorded Concern Status LastModified by Organization Details LastModified Time None Recorded Advance Directives Directive None Recorded Payers Insurance Date Sequence Insurance Name Policy Number Policy Lim Covered Member ID Lim Member ID Guarantor Name 04/07/2024 [facility] [employer] Chris Watson 04/07/2024 1 MEDICAID[place]: [facility] Chris Watson [id number] Chris Watson
--- NOTE | 2024-08-17 15:00 | MHC.OFFVIS ---
Intake Visit Reasons: 3 m Semen analysis Intake Note: Patient is present for 3M SEMEN ANALYSIS Urology Medication:NONE Antibiotic Allergy:NONE Blood Thinner:NONE Sound Engineering Technician Required: No Allergies No Known Allergies [No Known Allergies*] Allergy (Verified 08/17/24 15:01) HPI Comments Details: Chris is a very pleasant male. He is a patient of Dr. Josue . He is seen for the following urologic condition - anxiety about health - Vasectomy follow-up No sperm seen on high-powered field evaluation Vasectomy follow-up The patient presents for vasectomy follow-up. He is currently in a stable partnership He has fathered - 1 child, with a single partner. The youngest child is - greater than 1 year. His partner is aware and permissive for a vasectomy Current form of control is barrier. [facility] Medical History No known health problems Family History (Updated 06/11/20 @ 11:13 by SANDRA Fernandes) Mother No problems noted. Father No problems noted. 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 Review of Systems Const Denies chills and Denies fever(s) Card Reports no additional complaints and Denies syncope Resp Denies cough GI Denies abdominal pain and Denies heartburn Reports as per HPI and Denies change in libido Neuro Denies syncope Psych Denies change in libido Endo Denies change in libido Physical Exam Const General: cooperative, healthy appearing, comfortable and no acute distress Orientation/consciousness: patient oriented x3 HEENT Face and sinus: Yes normal facial exam Mouth: moist mucous membranes Neck Neck: Yes normal visual inspection, Yes full ROM and Yes trachea midline Chest Chest palpation & inspection: normal inspection of the chest Resp Effort & Inspection: normal respiratory effort, able to speak in complete sentences and no respiratory distress GI Inspection: Yes normal to inspection Back/Spine/Pelvis Cervical Spine: normal cervical lordosis Thoracic/Lumbar Spine: thoracic and lumbar spine normal to inspection Skin General skin exam: no rashes or lesions noted Neuro General: patient oriented x3, gait normal, tone normal and moves all extremities Extrem General: Yes normal to inspection and Yes capillary refill normal Assessment & Plan Assessment & Plan (1) Anxiety about health: Code(s): R45.89 - Other symptoms and signs involving emotional state Category: Medical Plan P.r.n. follow-up Patient Instructions: This note is constructed using voice recognition software. While every effort has been made to ensure accuracy threshing operator errors may have been included. Imaging studies, laboratory and physical exam results were discussed and reviewed in detail. No major barriers to patient understanding were identified. An opportunity to ask questions regarding the treatment plan was provided. All questions were answered. The patient expressed understanding and agreement with the above treatment plan. The patient is aware they should contact our office by phone for worsening of their current condition or the appearance of new urologic symptoms. Compliance is encouraged with any medications and followup testing that is ordered. It is a privilege to participate in the urologic care of your patient. If you have any questions or concerns regarding treatment for the above conditions, or other urologic issues, please do not hesitate to contact me. The office telephone contact is [phone]. Sincerely, Dr Edwar Gamboa MD, [facility] - Urology Compassionate Specialist Care for the Genitourinary System Coding Level of Care Code Est Pt Level 3 (32096) Diagnoses Anxiety about health R45.89
== END 2024-08-17 15:24 | disposition home or self-care (01) ==
LOC: HO.HUSH 14:56
PROVIDERS: Visit Provider Urology
DX: R45.89 Other symptoms and signs involving emotional state (principal)
CPT/HCPCS: 99213

== ENCOUNTER → 2024-08-17 14:56 | Outpatient (BNVA) | payer OTHER, SELFPAY | PROVIDERS: Visit Provider Urology | DX: R45.89 Other symptoms and signs involving emotional state (principal) | CPT/HCPCS: 99212 ==

== ENCOUNTER 2025-03-15 11:35 | Outpatient (REF) | payer OTHER, SELFPAY ==
--- OUTSIDE RECORDS SUMMARY | 2025-03-15 10:30 | XMS_ITS | Encounter Summary ---
Author Organization [employer] Address [address] [place] [address] Care Team Providers Care Keypunch Operators Supervisor Name Role Phone Mariella Rodriguez DO Primary Care Provider [phone] Encounter Details Date Type Department Care Team (Late st Contact Info) Description 03/15/2025 10:30 AM EST Office Visit [facility] MED[facility]INE [address] [place], [place] [phone] Mariella Rodriguez DO [address] [place], [place] [phone] Routine history and physical examination of adult (Primary Dx) Social History Tobacco Use Types Packs/Day Years Used Date Smoking Tobacco: Never Passive Smoke Exposure: Never Smokeless Tobacco: Never Tobacco Cessation:Counseling Given: Not Answered Alcohol Use Standard Drinks/Week Comments Not Currently 0 (1 standard drink = 0.6 oz pur e alcohol) Alcohol Answer Date Recorded How often do you have a drink containing alcohol ? 0 03/15/2025 How many drinks containing a lcohol do you have on a typical day when you are drinking? 0 03/15/2025 How often do you have six or more drinks on one occasion? 0 03/15/2025 Depression Answer Date Recorded Patient Health Questionnaire-9 Score 3 03/15/2025 Patient Health Questionnaire-9 Score 3 03/15/2025 Last PHQ-9: Questionnaire Data Not on file 1 05/16/2024 Housing Stability Answer Date Recorded What is your housing situation today? I have diamond stoner 03/08/[address] you li ve. Do you have problems with any of the following? None of the above 03/08/2025 Food Insecurity Answer Date Recorded Within the past 12 months, y ou worried that your food would run out before you got money to buy more: Never True 03/08/2025 Within the past 12 months,th e food you bought just didn't last and you didn't have enough money to get more: Never True 02/2025 Transportation Answer Date Recorded In the past 12 months, has l ack of transportation kept you from medical appts, meetings, work or from getting things needed for daily living? No 03/08/2025 Utilities Answer Date Recorded In the past 12 months, has t he electric, gas, oil or water company threatened to shut off services in your home? No 03/08/2025 Depression Answer Date Recorded Patient Health Questionnaire-2 Score 2 03/15/2025 Internet Access Answer Date Recorded Internet Access Q1 Yes 03/08/2025 Internet Access Q2 Not on file 03/08/2025 Sex and Gender Information Value Date Recorded Sex Assigned at Male 01/25/2022 10:21 AM EDT Legal Sex Male 10:21 AM EDT Gender Identity Male 01/25/2022 10:21 AM EDT Sexual Orientation Straight 01/25/2022 10 :21 AM EDT documented as of this encounter Last Filed Vital Signs Vital Sign Reading Time Taken Comments Blood Pressure 130/70 03/15/2025 10:46 AM EST Pulse 68 03/15/2025 10:46 AM EST Temperature 37.1 C (98.7 F) 03/15/2025 10:46 AM EST Respiratory Rate 16 03/15/2025 10:46 AM EST Oxygen Saturation - - Inhaled Oxygen Concentration - - Weight 119 kg (263 lb) 03/15/2025 10:46 AM EST Height 170.2 cm (5' 7 ) 03/15/2025 10:46 AM EST Body Mass Index 41.19 03/15/2025 10:46 AM EST documented in this encounter Functional Status * Over the past 2 weeks, how often have you been bothered by any of the following problems? Question Answer Date of Assessment Author Patient Health Questionnaire-2 Score 2 02/25 10:50 AM EST Gab Brock MA * Little interest or pleasure in doing things Answer Date of Assessment Author Several days 03/15/2025 10:50 AM EST Kailyn Brock MA * Feeling down, depressed, or hopeless Answer Date of Assessment Author Several days 03/15/2025 10:50 AM Kailyn Marin MA * Trouble falling or staying asleep, or sleeping too much Answer Date of Assessment Author Not at all 03/15/2025 10:50 AM Kailyn Marin MA * Feeling tired or having little energy Answer Date of Assessment Author Several days 03/15/2025 10:50 AM Kailyn Marin MA * Poor appetite or overeating Answer Date of Assessment Author Not at all 03/15/2025 10:50 AM Kailyn Marin MA * Feeling bad about yourself - or that you are a failure or have let yourself or your family down Answer Date of Assessment Author Not at all 03/15/2025 10:50 AM Kailyn Marin MA * Trouble concentrating on things, such as reading the newspaper or watching television Answer Date of Assessment Author Not at all 03/15/2025 10:50 AM Kailyn Marin MA * Moving or speaking so slowly that other people could have noticed? Or the opposite - being so fidgety or restless that you have been moving around a lot more than usual. Answer Date of Assessment Author Not at all 03/15/2025 10:50 AM Kailyn Marin MA * Thoughts that you would be better off or hurting yourself in some way Answer Date of Assessment Author Not at all 03/15/2025 10:50 AM Kailyn Marin MA * Patient Health Questionnaire-9 Score Answer Date of Assessment Author 3 03/15/2025 10:50 AM Kailyn Marin MA * Over the last 2 weeks, how often have you been bothered by any of the following problems? Question Answer Date of Assessment Author Feeling nervous, anxious, or on edge 0 02/25 10:47 AM Gab Marin MA Not being able to stop or co ntrol worrying 0 03/15/2025 10:47 AM Gab Marin M A Worrying too much about diff erent things 0 03/15/2025 10:47 AM Gab Marin M A Trouble relaxing 1 03/15/2025 10:47 AM Gab Marin MA Being so restless that it is hard to sit still 0 03/15/2025 10:47 AM Gab Marin M A Becoming easily annoyed or irritable 1 02/25 10:47 AM Gab Marin MA Feeling afraid as if somethi ng awful might happen 0 03/15/2025 10:47 AM Gab Marin M A RUI-7 Total Score 2 03/15/2025 10:47 AM Gab Marin MA * How difficult have these problems made it for you to do your work, take care of things at home, or get along with other people? Answer Date of Assessment Author Not difficult at all 03/15/2025 10:50 AM Gab Mosqueda MA documented as of this encounter Plan of Treatment Scheduled Orders Name Type Priority Associated Diagnoses Orde r Schedule T4, Free Lab Routine Routine history and physical examination of adult Expected: 03/15/2025 (Approximate), Expires: 03/15/2026 Lipid Panel, Standard Lab Routine Routine history and physical examination of adult Expected: 03/15/2025 (Approximate), Expires: 03/15/2026 TSH Lab Routine Routine history and physical examination of adult Expected: 03/15/2025 (Approximate), Expires: 03/15/2026 Vitamin D, 25-Hydroxy, Total, Immunoassay Lab Routine Routine history and physical examination of adult Expected: 03/15/2025 (Approximate), Expires: 03/15/2026 Hepatic Function Panel Lab Routine Routine history and physical examination of adult Expected: 03/15/2025 (Approximate), Expires: 03/15/2026 Hemoglobin A1c Lab Routine Routine history and physical examination of adult Expected: 03/15/2025 (Approximate), Expires: 03/15/2026 CBC Lab Routine Routine history and physical examination of adult Expected: 03/15/2025, Expires: 03/15/2026 Basic Metabolic Panel Lab Routine Routine history and physical examination of adult Expected: 03/15/2025 (Approximate), Expires: 03/15/2026 Varicella zoster antibody, IgG Lab Routine Routine history and physical examination of adult Expected: 03/15/2025 (Approximate), Expires: 03/15/2026 Measles, Mumps, and Rubella (MMR) Antibodies (IgG) Panel, Immune Status Lab Routine Routine history and physical examination of adult Expected: 03/15/2025 (Approximate), Expires: 03/15/2026 Hepatitis B surface antigen, EIA Lab Routine Routine history and physical examination of adult Expected: 03/15/2025 (Approximate), Expires: 03/15/2026 Chlamydia/N. Gonorrhoeae RNA, TMA, Urogenitial Microbiology Routine Routine history and physical examination of adult Ordered: 03/15/2025 HIV-1/2 Antigen and Antibodies, Fourth Generation, with Reflexes Lab Routine Routine history and physical examination of adult Expected: 03/15/2025 (Approximate), Expires: 03/15/2026 Hepatitis C Antibody with Reflex to HCV, RNA, Quantitative, Real-Time PCR Lab Routine Routine history and physical examination of adult Expected: 03/15/2025, Expires: 03/15/2026 RPR (Monitor) with Reflex to Titer Lab Routine Routine history and physical examination of adult Expected: 03/15/2025, Expires: 03/15/2026 Hepatitis B Surface Antibody, Qualitative Lab Routine Routine history and physical examination of adult Expected: 03/15/2025 (Approximate), Expires: 03/15/2026 Hepatitis A Antibody, Total Lab Routine Routine history and physical examination of adult Expected: 03/15/2025 (Approximate), Expires: 03/15/2026 Hepatitis B Core Antibody, Total Lab Routine Routine history and physical examination of adult Expected: 03/15/2025 (Approximate), Expires: 03/15/2026 documented as of this encounter Visit Diagnoses Diagnosis Routine history and physical examination of adult- Primary documented in this encounter Additional Health Concerns Assessment Noted Time PHQ-9 Depression Total Score: 3 03/15/20 25 10:50 AM EST documented as of this encounter Care Teams Keypunch Operators Supervisor Relationship Specialty Start Date End Date Mariella Rodriguez DO [address] [place] [address] PCP - General Family Medicine 02/09/24 documented as of this encounter
--- OUTSIDE RECORDS SUMMARY | 2025-03-15 13:42 | XMS_ITS | Data Portability ---
Author Organization [facility] [id number] Address [address] [place] [address] Assessment No assessment recorded. Plan of Treatment [...] OC-UDS Rapid eCup Template completed [place] [facility] 04/07/2024 18:28:37 Imaging Results None recorded. [...] Diagnosis SNOMED-CT Code Diagnosis ICD10 Code Diagnosis IMO Codes Diagnosis Note [id number] [facility] [address] [place] [address] 06/03/2021 17:30:45 06/03/2021 19:05:58 [id number] [place] [id number] [phone] 04/07/2024 18:02:17 04/07/2024 18:31:49 History and physical examination, occupation [id number] Z02.1 Health Concerns Section Related Observation LastModified by Organization Detai ls LastModified Time None Recorded Concern Status LastModified by Organization Details LastModified Time None Recorded Advance Directives Directive None Recorded Payers Insurance Date Sequence Insurance Name Policy Number Policy Lim Covered Member ID Lim Member ID Guarantor Name 04/07/2024 OC-ESCREEN [facility] [employer] Chris Watson 04/07/2024 1 [place] [id number] [facility]
--- OUTSIDE RECORDS SUMMARY | 2025-03-15 13:42 | XMS_ITS ---
Author Name [facility] Organization Unknown Encounters Encounter Type Encounter Reason Primary Diagnosis Location Date Ambulatory [facility]. ([facility] 04/07/2024
--- OUTSIDE RECORDS SUMMARY | 2025-03-15 13:42 | XMS_ITS | Clinical Summary ---
Author Organization [employer] Address [address] [facility] 7t [place] [address] Care Team Providers Care Machinist First Class Name Role Phone Mariella Rodriguez Primary Care Provider Allergies Active Allergy Reactions Criticality Noted Date Comments Mangifera Indica Itching 08/25/2022 Medications fluticasone (Flonase) 50 MCG/ACT nasal spray INSTILL 1 SPRAY INTO EACH NOSTRIL TWICE DAILY FOR ALLERGY SYMPTOMS. 48 mL 3 03/15/20 25 Active loratadine (Claritin) 10 MG tablet take 1 tablet (10MG) by oral route every day for allergies 90 tablet 3 03/15/20 25 Active trimethoprim-p olymyxin b (Polytrim) ophthalmic solution 1 drp by OS QID x 7 days 10 mL 07/22/19 23 025 Discontinued( erapy completed) montelukast (Singulair) 10 MG tablet 1 tablet by Oral route every day 07/30/19 17 025 Discontinued( erapy completed) loratadine (Claritin) 10 MG tablet TAKE 1 TABLET (10MG) BY ORAL ROUTE EVERY DAY FOR ALLERGIES 90 tablet 1 07/22/19 24 025 Discontinued(Re order (will not trigger notification to Pharmacy)) triamcinolone (Kenalog) 0.1 % ointment Apply topically if needed in the morning and at bedtime for rash. 30 g 02/09/20 24 025 Discontinued(Th erapy completed) fluticasone (Flonase) 50 MCG/ACT nasal spray INSTILL 1 SPRAY INTO EACH NOSTRIL TWICE DAILY FOR ALLERGY SYMPTOMS. 48 mL 03/06/20 24 025 Discontinued(Re order (will not trigger notification to Pharmacy)) Active Problems Problem Noted Date Diagnosed Date Seasonal allergies 07/21/2022 Cholelithiasis 07/21/2022 Resolved Problems Problem Noted Date Diagnosed Date Resolved Date Body mass index (BMI) 30.0-30.9, adult 03/18/2015 07/21/2022 Encounters Date Type Department Care Team Description 03/15/2025 10:30 AM EST Office Visit [facility] MEDICINE [address] [place] [phone] Mariella Rodriguez DO Routine history and physical examination of adult (Primary Dx) 03/15/2025 Travel 03/14/[address] [facility] MEDICINE [address] [place], [place] [phone] Mariella Rodriguez DO Chart Prep 03/08/[address] [facility] [address] [place], [place] [phone] Mariella Rodriguez DO Pre-visit Planning (SDOH negative, Tobacco screening negative) 02/15/[address] [facility] MED[facility] [address] [place], [place] [phone] Mariella Rodriguez DO Recall Appointment 02/15/2025 Travel from Last 3 Months Immunizations Immunization Administration Dates Next Due DTaP 07/22/2003, 0,1999,07/22 HPV, Quadrivalent 03/01/2012,09/22/2011,07/31/19 11 Hep A, ped/adol, 2 dose 03/01/2012,07/30/2010 Hep B, Adolescent or Pediatric 01/13/2000,1999,1999 Hib (HbOC) 11/09/2000, 0,1999,07/22 IPV 05/23/2003, 0,1999,07/22 Influenza live intranasal qu adrivalent LIAV4 03/18/2015 Influenza, Split (incl. laura fied surface antigen) 03/01/2012 MMR 05/23/2003,11/09/2000 Meningococcal MCV4P ACYW-135 09/08/2016 Meningococcal MPSV4 07/30/2010 TD (adult), 2 Lf tetanus tox oid, preservative free, adsorbed 05/27/2008 Tdap 07/22/2023,07/30/2010 Varicella 07/30/2010,05/23/2003 Family History Medical History Relation Name Comments Diabetes Brother No Known Problems Father Heart disease Maternal Grandfather Breast cancer Maternal Grandmother Diabetes Maternal Grandmother Aortic stenosis Mother Hypertension Mother Dementia Paternal Grandmother Relation Name Status Comments Brother Father Maternal Grandfather Maternal Grandmother Mother Paternal Grandmother Social History Tobacco Use Types Packs/Day Years [...] Orientation Straight 01/25/2022 10 :21 AM EDT Last Filed Vital Signs Vital Sign Reading Time Taken Comments Blood Pressure 130/70 03/15/2025 10:46 AM EST Pulse 68 03/15/2025 10:46 AM EST Temperature 37.1 C (98.7 F) 03/15/2025 10:46 AM EST Respiratory Rate 16 03/15/2025 10:46 AM EST Oxygen Saturation 98% 07/22/2023 11:14 AM EDT Inhaled Oxygen Concentration - - Weight 119 kg (263 lb) 03/15/2025 10:46 AM EST Height 170.2 cm (5' 7 ) 03/15/2025 10:46 AM EST Body Mass Index 41.19 03/15/2025 10:46 AM EST Plan of Treatment Health Maintenance Due Date Last Done Comments Family Planning (PISQ) 2014 COVID-19 Vaccine ( season) 2024 Influenza Vaccine (#1) 2024 03/18/2015, 2011 Alcohol/Substance Use Screening 03/15/2026 03/15/2025 Depression Screening 03/15/2026 03/15/2025, 03/15/20 25 Disability Screening 03/15/2026 03/15/2025 SDOH Screening 03/15/2026 03/15/2025 Tobacco Screening 03/15/2026 03/15/2025 DTaP/Tdap/Td Vaccines (7 - Td or Tdap) 07/21/2033 07/22/2023, 07/30/2010, 05/27/2008, Additional history exists Zoster Vaccines (1 of 2) 2049 RSV Patients and Patients Aged 60 years or older (1 - 1-dose 75+ series) 2074 Hepatitis B Vaccines Completed 01/13/2000, 1999, 1999 HIB Vaccines Completed 11/09/2000, 12/26, 1999, Additional history exists IPV Vaccines Completed 05/23/2003, 12/26, 1999, Additional history exists HPV Vaccines Completed 03/01/2012, 08/27, 07/30/2010 Hepatitis A Vaccines Completed 03/01/2012, 07/31/19 11 Meningococcal Vaccine Completed 09/08/2016, 011 HIV Screening Completed 08/25/2022 Hepatitis C Screening Completed 07/22/2023 Meningococcal B Vaccine Aged Out No l onger eligible based on patient's age to complete this topic Pneumococcal Vaccine: Pediatrics (0 to 5 Years) and At-Risk Patients (6 to 49) Years Aged Out No longer eligible based on patient's age to complete this topic RSV under 20 months Aged Out No longe r eligible based on patient's age to complete this topic Rotavirus Vaccines Aged Out No longer eligible based on patient's age to complete this topic Procedures Procedure Name Priority Date/Time Associated Diagnosis Comments HEPATITIS C AB W/REFL TO HCV RNA, QN, PCR Routine 07/22/2023 12:40 PM EDT Routine adult health maintenance HIV 1 RNA, QN PCR W/RFL SYDNEY (RTI,PI,INTEGRASE) Routine 08/25/2022 3:41 PM EDT Encounter for screening examination for sexually transmitted disease from Last 3 Months or Most Recently Relevant to Health Maintenance Results * Hepatitis C Antibody with Reflex to HCV, RNA, Quantitative, Real-Time PCR (07/22/2023 12:40 PM EDT) Hepatitis C Antibody Nonreactive Nonreactive [facility] Comment:Antibodies to HCV no t detected; does not exclude early acuteHCV infection. Blood Venous blood specimen / Unknown 07/22/2023 12:40 PM EDT 07/22/2023 4:18 PM EDT us Jackelyn Josue BLASTING HELPER LAB BLOOD ORDERABLES Final Resu lt [facility] [address] [place] [phone] * HIV-1 RNA, Quantitative, Real-Time PCR with Reflex to Genotype (RTI, PI, Integrase) (08/25/2022 3:41 PM EDT) Pathologist [facility] HIV 1 RNA, QN PCR NOT DETECTED copies/mL [facility], HIV 1 RNA, QN PCR NOT DETECTED Log copies/mL [facility], Comment: REFERENCE RANGE: NOT DETECTED copies/mL NOT DETECTED Log copies/mL This test was performed using Real-Time Polymerase Chain Reaction. Reportable range is 20 to 10,000,000 copies/mL (1.30-7.00 Log copies/mL). 08/25/2022 3:41 PM EDT 08/25/2022 3:41 PM EDT [facility] - 08/29/2022 1:37 AM EDT FASTING:NO FASTING: NO Jackelyn Josue BLASTING HELPER LAB BLOOD ORDERABLES Final Resu lt [facility] [address], [address] [place] [address] [facility], [address] [place] [address] from Last 3 Months or Most Recently Relevant to Health Maintenance Insurance [address] [place] [id number] [facility] Care Teams Machinist First Class Relationship Specialty Start Date End Date Mariella Rodriguez DO [address] [place] [id number] PCP - General Family Medicine 02/09/24
--- OUTSIDE RECORDS SUMMARY | 2025-03-15 13:42 | XMS_ITS | Encounter Summary ---
Author Organization [employer] Address [address] [facility] 7t [place] [address] Care Team Providers Care Electric Motor Control Assembler Name Role Phone Mariella Rodriguez DO Primary Care Provider Reason for Visit * Reason Onset Date Comments Chart Prep 03/14/2025 Encounter Details Date Type Department Care Team ([facility] st Contact Info) Description 03/14/2025 Telephone [facility] MEDICINE [address] [place], [place] [phone] Mariella Rodriguez DO [address] [place], [place] [phone] Chart Prep Social History Tobacco Use Types Packs/Day Years Used Date Smoking Tobacco: Never Smokeless Tobacco: Never Alcohol Use Standard Drinks/Week Comments Not Currently [...] AM EDT documented as of this encounter Miscellaneous Notes * Telephone Encounter - Charito Wallace MA - 03/14/2025 9:56 AM EST Chart Prep Labs: not applicable Images: not applicable Referrals: not applicable Vaccines due: Covid and Flu Screenings: PISQ Overdue care gaps: SBIRT, PHQ-9, RUI-7, Oral health screening, Disability screen, and Tobacco documented in this encounter Plan of Treatment Not on file documented as of this encounter Visit Diagnoses Not on filedocumented in this encounter Additional Health Concerns Assessment Noted Time PHQ-9 Depression Total Score: 0 08/26/19 23 2:58 PM EDT documented as of this encounter Care Teams Electric Motor Control Assembler Relationship Specialty Start Date End Date Mariella Rodriguez DO [address] [place] [address] PCP - General Family Medicine 02/09/24 documented as of this encounter
--- OUTSIDE RECORDS SUMMARY | 2025-03-15 13:42 | XMS_ITS | Encounter Summary ---
Author Organization [employer] Address [address] [place] [address] Care Team Providers Care Radiotelegraph Operator Servicer Name Role Phone Mariella Rodriguez Primary Care Provider Encounter Details Date Type Department Care Team (Latest Contact Info) Description 03/15/2025 Travel Social History Tobacco Use Types Packs/Day Years Used Date Smoking Tobacco: Never Passive Smoke Exposure: Never Smokeless Tobacco: Never Alcohol Use Standard [...] AM EDT documented as of this encounter Plan of Treatment Not on file documented as of this encounter Visit Diagnoses Not on filedocumented in this encounter Additional Health Concerns Assessment Noted Time PHQ-9 Depression Total Score: 3 03/15/20 25 10:50 AM EST documented as of this encounter Care Teams Radiotelegraph Operator Servicer Relationship Specialty Start Date End Date Mariella Rodriguez DO [address] [place] [id number] PCP - General Family Medicine 02/09/24 documented as of this encounter
--- OUTSIDE RECORDS SUMMARY | 2025-03-15 13:43 | XMS_ITS | Encounter Summary ---
Author Organization [employer] Address [address] [facility] [address]t [place] [address] Care Team Providers Care Marine Electronics Repairer Name Role Phone Jackelyn Josue Primary Care Provider [phone] Sherrie Sanders NP Primary Care Provider [phone] Mariella Rodriguez DO Primary Care Provider [phone] Reason for Visit * Reason Comments Med Change Request Encounter Details Date Type Department Care Team ([facility] st Contact Info) Description 07/22/2023 Refill [facility] [address] [place] [address] Jackelyn Josue FNP [address] [place] [address] Social History Tobacco Use Types Packs/Day Years Used Date Smoking Tobacco: Never Smokeless Tobacco: Never Alcohol Use Standard Drinks/Week Comments Not Currently 0 (1 standard drink = 0.6 oz pur e alcohol) Depression Answer Date Recorded Patient Health Questionnaire-9 Score 0 08/25/2022 Housing Stability Answer Date Recorded What is your housing situation today? I have diamond stoner 01/31/[address] you li ve. Do you have problems with any of the following? None of the above 01/31/2023 Food Insecurity Answer Date Recorded Within the past 12 months, y ou worried that your food would run out before you got money to buy more: Never True 01/31/2023 Within the past 12 months,th e food you bought just didn't last and you didn't have enough money to get more: Never True 08/2022 Transportation Answer Date Recorded In the past 12 months, has l ack of transportation kept you from medical appts, meetings, work or from getting things needed for daily living? No 01/31/2023 Utilities Answer Date Recorded In the past 12 months, has t he electric, gas, oil or water company threatened to shut off services in your home? No 01/31/2023 Depression Answer Date Recorded Patient Health Questionnaire-2 Score 0 08/25/2022 Sex and Gender Information Value Date Recorded [...] documented as of this encounter Care Teams Marine Electronics Repairer Relationship Specialty Start Date End Date Jackelyn Josue FNP [address] [place] [address] PCP - General Family Medicine 07/22/23 11/29/23 Sherrie Sanders NP [address] [place] [address] PCP - General Family Medicine 11/30/23 02/08/24 Mariella Rodriguez DO [address] [place] [address] PCP - General Family Medicine 02/09/24 documented as of this encounter
[2025-03-15 15:27] LABS: Hematocrit 41.6 % (42.0-52.0); Hemoglobin 13.5 g/dl (14.0-18.0); Mean Corpuscular HGB Conc 32.5 g/dl (31.0-36.0); Mean Corpuscular Hemoglobin 28.0 pg (27.0-33.0); Mean Corpuscular Volume 86.3 fL (80.0-98.0); NRBC Abs Auto 0.000 X10*3/uL (0.0-0.012); NRBC Pct Auto 0.0 /100WBC (0.0-0.2); Platelet Count 330 X10*3/uL (160-400); Red Blood Count 4.82 X10*6/uL (4.60-5.80); White Blood Count 8.2 X10*3/uL (4.8-10.8)
[2025-03-15 16:02] LABS: Alanine Aminotransferase 18 U/L (0-40); Albumin Level 4.3 g/dL (3.5-5.0); Alkaline Phosphatase 91 U/L (39-117); Anion Gap 11 (12-20); Aspartate Amino Transferase 37 U/L (5-37); Blood Urea Nitrogen 16 mg/dL (9-16); Calcium 9.4 mg/dL (8.4-10.2); Carbon Dioxide 27 mmol/L (22-29); Chloride 105 mmol/L (96-108); Cholesterol 210 mg/dL (<200); Estimated Glomerular Filt Rate > 60; Free T4 (Free Thyroxine) 0.95 ng/dL (0.71-1.85); HDL Cholesterol 36 mg/dL (>40); Potassium 3.9 mmol/L (3.3-5.1); Sodium 139 mmol/L (135-145); Thyroid Stimulating Hormone 0.67 uIU/mL (0.32-4.0); Total Protein 7.9 g/dL (6.5-8.0); Triglycerides 81 mg/dL (<150)
[2025-03-16 05:43] LABS: Rubeola IgG (Measles) 277.00 AU/mL
[2025-03-18 04:54] LABS: HBS Num1 8.98 mIU/mL (0-7.99); HBc Num1 0.20 S/CO (0.00-0.79); HBsAGNum1 0.58 S/CO (0.00-0.99); HIV Num 1 0.06 S/CO (0.00-0.99); Hepatitis B Surface Antigen Negative (Negative); ~HepC Num1 0.17 S/CO (0.00-0.79); ~Hepatitis C Antibody Nonreactive (Nonreactive)
[2025-03-18 05:34] LABS: HBS Num2 9.27 mIU/mL (0-7.99); HBS Num3 9.26 mIU/mL (0-7.99); ~Hepatitis B Surface Antibody GRAYZONE (Nonreactive)
== END 2025-03-15 11:36 | disposition home or self-care (01) ==
LOC: HO.HHCL 11:35
PROVIDERS: PCP Family Medicine; Visit Provider Family Medicine
DX: Z00.00 Encounter for general adult medical examination without abnormal findings (principal); Z01.84 Encounter for antibody response examination
CPT/HCPCS: 36415; 80048; 80061; 80076; 82306; 83036; 84439; 84443; 85027; 86592; 86704; 86706; 86708; 86735; 86762; 86765; 86787; 86803; 87340; 87389